=== PATIENT | female | born 1995 | race Hispanic/Latino ===

== ENCOUNTER 2018-08-28 13:27 | Emergency (ER) | payer OTHER ==
[~2018-08-28] VITALS: Ht 154.9 cm; Wt 56.7 kg
[2018-08-28] MEDS ORDERED: TETANUS/DIPHTHERIA TOX ADULT 0.5 ML SYR IM ONE (14:15)
== END 2018-08-28 16:48 | disposition home or self-care (01) ==
LOC: FSED 13:27
DX: S61.412A Laceration without foreign body of left hand, initial encounter (principal); W26.0XXA Contact with knife, initial encounter; Y92.000 Kitchen of unspecified non-institutional (private) residence as the place of occurrence of the external cause; F32.9 Major depressive disorder, single episode, unspecified
CPT/HCPCS: 90471; 90714; 99284

== ENCOUNTER 2022-12-15 14:18 | Emergency (ER) | payer OTHER ==
[~2022-12-15] VITALS: Ht 152.4 cm; Wt 72.6 kg
[2022-12-15] MEDS ORDERED: CLEOCIN HCL300 MG PO (19:25)
[2022-12-15 19:40] VITALS: BP 109/76
== END 2022-12-15 19:40 | disposition home or self-care (01) ==
LOC: FSED 14:40
DX: O86.09 Infection of obstetric surgical wound, other surgical site (principal); O90.0 Disruption of cesarean delivery wound; F32.A Depression, unspecified
CPT/HCPCS: 76705; 99283